=== PATIENT | male | born 2000 | race Two or more races ===

== ENCOUNTER 2022-12-22 09:50 | Emergency (ER) | payer OTHER ==
[~2022-12-22] VITALS: Ht 180.3 cm; Wt 95.3 kg
== END 2022-12-22 16:37 | disposition home or self-care (01) ==
LOC: ER 09:50
DX: K52.9 Noninfective gastroenteritis and colitis, unspecified (principal); Z20.822 Contact with and (suspected) exposure to COVID-19

== ENCOUNTER 2022-12-24 00:37 | Emergency (ER) | payer OTHER ==
[~2022-12-24] VITALS: Ht 177.8 cm; Wt 88.0 kg
== END 2022-12-24 14:14 | disposition home or self-care (01) ==
LOC: ER 00:37
DX: R11.10 Vomiting, unspecified (principal); E86.0 Dehydration

== ENCOUNTER 2022-12-26 14:39 | Emergency (ER) | payer OTHER ==
[~2022-12-26] VITALS: Ht 177.8 cm; Wt 86.2 kg
== END 2022-12-26 23:08 | disposition home or self-care (01) ==
LOC: ER
DX: K29.70 Gastritis, unspecified, without bleeding (principal)

== ENCOUNTER 2023-01-21 20:52 | Emergency (ER) | payer OTHER ==
[~2023-01-21] VITALS: Ht 177.8 cm; Wt 85.7 kg
[2023-01-21] MEDS ORDERED: CARAFATE1 GM/10 ML PO (22:59)
== END 2023-01-21 23:44 | disposition home or self-care (01) ==
LOC: ER 20:52
DX: K29.70 Gastritis, unspecified, without bleeding (principal)

== ENCOUNTER 2023-03-01 15:22 | Emergency (ER) | payer OTHER ==
[~2023-03-01] VITALS: Ht 177.8 cm; Wt 70.8 kg
[~2023-03-01 15:22] MED LIST: CARAFATE1 GM/10 ML PO
== END 2023-03-02 00:07 | disposition home or self-care (01) ==
LOC: ER 15:22
DX: K29.70 Gastritis, unspecified, without bleeding (principal)

== ENCOUNTER → 2023-03-29 | Emergency (ER) | payer OTHER ==
[~2023-03-29] VITALS: Ht 172.7 cm; Wt 68.0 kg
== END | disposition home or self-care (01) ==
LOC: ER 10:37
PROVIDERS: Emergency Medicine
DX: K29.70 Gastritis, unspecified, without bleeding (principal)

== ENCOUNTER 2023-04-12 11:37 | Emergency (ER) | payer OTHER ==
[~2023-04-12] VITALS: Ht 182.9 cm; Wt 59.0 kg
== END 2023-04-12 19:02 | disposition home or self-care (01) ==
LOC: ER 11:37
PROVIDERS: Emergency Medicine
DX: K29.70 Gastritis, unspecified, without bleeding (principal)

== ENCOUNTER 2023-06-26 22:35 | Emergency (ER) | payer OTHER ==
[~2023-06-26] VITALS: Ht 177.8 cm; Wt 68.0 kg
[2023-06-27 01:50] LABS: HEMATOCRIT 43.4 % (39.0-48.0); HEMOGLOBIN 14.6 g/dL (13-16.00); MEAN CELL VOLUME 86.4 fL (80.0-100.00); MEAN CORPUSCULAR HEMOGLOBIN 29.1 pg (27.00-32.0); MEAN CORPUSCULAR HGB CONC 33.7 g/dl (32.0-36.0); PLATELET COUNT 272 K/uL (150-450); RED BLOOD COUNT 5.02 M/uL (4.00-6.00); RED CELL DISTRIBUTION WIDTH 13.6 % (11.5-14.5)
[2023-06-27 02:08] LABS: CALCIUM 9.4 mg/dL (8.5-10.1); CREATININE SERUM 0.81 mg/dL (0.70-1.30); GFR 119.16; POTASSIUM 3.49 mEq/L (3.5-5.1)
[2023-06-27 06:55] LABS: PH,URINE 6.5 (5.0-8.0); URINE APPEARANCE Cloudy; URINE BILIRRUBIN Negative (NEGATIVE); URINE BLOOD Trace; URINE COLOR Yellow; URINE GLUCOSE Negative (NEGATIVE); URINE LEUKOCYTE Large; URINE NITRATE Negative; URINE PROTEIN Negative (NEGATIVE)
[2023-06-27 06:56] LABS: URINE BACTERIA 132.2 uL (0.0-1933); URINE RBC 13.6 uL (0.0-20.8)
[2023-06-27 08:05] LABS: URINE EPITHELIAL CELLS 0.1 uL (0.0-38.8)
[2023-06-27] MEDS ORDERED: ONDANSETRON ODT4 MG PO ×2 (08:48→08:49)
[2023-06-27] MEDS ORDERED: PEPCID40 MG PO ×2 (08:48→08:49)
[2023-06-27] MEDS ORDERED: CEPHALEXIN250 MG/5 M PO (08:49)
== END 2023-06-27 09:34 ==
LOC: ER 22:35
PROVIDERS: General Practice
DX: R11.10 Vomiting, unspecified (principal)

== ENCOUNTER 2023-07-03 22:35 | Emergency (ER) | payer OTHER ==
[~2023-07-03] VITALS: Ht 177.8 cm; Wt 72.6 kg
[~2023-07-03 22:35] MED LIST changes: +CEPHALEXIN250 MG/5 M PO; +ONDANSETRON ODT4 MG PO; +PEPCID40 MG PO
[2023-07-04 01:18] LABS: MEAN CELL VOLUME 84.1 fL (80.0-100.00); MEAN CORPUSCULAR HEMOGLOBIN 29.3 pg (27.00-32.0); MEAN CORPUSCULAR HGB CONC 34.8 g/dl (32.0-36.0); PLATELET COUNT 303 K/uL (150-450); RED BLOOD COUNT 5.47 M/uL (4.00-6.00); RED CELL DISTRIBUTION WIDTH 13.9 % (11.5-14.5)
[2023-07-04 01:41] LABS: ALBUMIN 4.7 gm/dL (3.4-5.0); BILIRUBIN TOTAL 0.94 mg/dL (0.3-1.2); CALCIUM 9.9 mg/dL (8.5-10.1); CREATININE SERUM 0.91 mg/dL (0.70-1.30); GFR 104.18; GLOBULINA 4.2 G/DL (2.4-3.5); POTASSIUM 3.53 mEq/L (3.5-5.1); TOTAL PROTEIN 8.9 gm/dL (6.4-8.2)
[2023-07-04 07:24] LABS: URINE APPEARANCE Clear; URINE BILIRRUBIN Negative (NEGATIVE); URINE BLOOD Trace; URINE COLOR Yellow; URINE GLUCOSE Negative (NEGATIVE); URINE LEUKOCYTE Negative; URINE NITRATE Negative; URINE PROTEIN 30 (NEGATIVE)
[2023-07-04 07:27] LABS: URINE BACTERIA 28.9 uL (0.0-1933); URINE EPITHELIAL CELLS 9.4 uL (0.0-38.8)
[2023-07-04] MEDS ORDERED: ZUPLENZ4 MG PO (07:45)
[2023-07-04] MEDS ORDERED: PEPCID40 MG PO (07:45)
== END 2023-07-04 07:53 ==
LOC: ER 22:35
PROVIDERS: General Practice
DX: K29.70 Gastritis, unspecified, without bleeding (principal); E86.0 Dehydration

== ENCOUNTER 2023-07-09 22:38 | Emergency (ER) | payer OTHER ==
[~2023-07-09] VITALS: Ht 177.8 cm; Wt 72.6 kg
[~2023-07-09 22:38] MED LIST changes: +ZUPLENZ4 MG PO
[2023-07-10 02:30] LABS: HEMATOCRIT 41.7 % (39.0-48.0); HEMOGLOBIN 14.7 g/dL (13-16.00); MEAN CELL VOLUME 85.4 fL (80.0-100.00); MEAN CORPUSCULAR HEMOGLOBIN 30.1 pg (27.00-32.0); MEAN CORPUSCULAR HGB CONC 35.2 g/dl (32.0-36.0); PLATELET COUNT 274 K/uL (150-450); RED BLOOD COUNT 4.88 M/uL (4.00-6.00); RED CELL DISTRIBUTION WIDTH 13.6 % (11.5-14.5)
[2023-07-10 03:56] LABS: ALBUMIN 4.2 gm/dL (3.4-5.0); BILIRUBIN TOTAL 0.62 mg/dL (0.3-1.2); CALCIUM 9.4 mg/dL (8.5-10.1); CREATININE SERUM 0.96 mg/dL (0.70-1.30); GFR 97.95; GLOBULINA 3.5 G/DL (2.4-3.5); POTASSIUM 3.21 mEq/L (3.5-5.1); TOTAL PROTEIN 7.7 gm/dL (6.4-8.2)
[2023-07-10] MEDS ORDERED: ZOFRAN8 MG PO (06:47)
[2023-07-10] MEDS ORDERED: PEPCID AC20 MG PO (06:47)
[2023-07-10] MEDS ORDERED: CARAFATE1 GM PO (06:47)
== END 2023-07-10 06:56 | disposition home or self-care (01) ==
LOC: ER 22:38
PROVIDERS: General Practice
DX: K29.70 Gastritis, unspecified, without bleeding (principal); R11.10 Vomiting, unspecified

== ENCOUNTER → 2023-08-17 | Emergency (ER) | payer OTHER ==
[~2023-08-17] VITALS: Ht 177.8 cm; Wt 86.2 kg
[~2023-08-17] MED LIST changes: +CARAFATE1 GM PO; +PEPCID AC20 MG PO; +ZOFRAN8 MG PO
[2023-08-17 14:01] LABS: HEMATOCRIT 43.7 % (39.0-48.0); HEMOGLOBIN 14.8 g/dL (13-16.00); MEAN CELL VOLUME 87.3 fL (80.0-100.00); MEAN CORPUSCULAR HEMOGLOBIN 29.6 pg (27.00-32.0); MEAN CORPUSCULAR HGB CONC 33.9 g/dl (32.0-36.0); PLATELET COUNT 278 K/uL (150-450); RED CELL DISTRIBUTION WIDTH 13.2 % (11.5-14.5)
[2023-08-17 14:33] LABS: ALBUMIN 4.2 gm/dL (3.4-5.0); BILIRUBIN TOTAL 0.55 mg/dL (0.3-1.2); BILIRUBIN,CONJUGATED 0.19 mg/dL (0.0-0.2); BILIRUBIN,UNCONJUGATED 0.36 mg/dL (0.0-0.6); CALCIUM 9.4 mg/dL (8.5-10.1); CREATININE SERUM 0.8 mg/dL (0.70-1.30); GFR 120.88; POTASSIUM 3.59 mEq/L (3.5-5.1); TOTAL PROTEIN 7.4 gm/dL (6.4-8.2)
[2023-08-17 14:47] LABS: PH,URINE 8.5 (5.0-8.0); URINE APPEARANCE Clear; URINE BILIRRUBIN Negative (NEGATIVE); URINE BLOOD Negative; URINE COLOR Yellow; URINE GLUCOSE Negative (NEGATIVE); URINE LEUKOCYTE Negative; URINE NITRATE Negative; URINE PROTEIN Negative (NEGATIVE)
[2023-08-17 14:53] LABS: URINE BACTERIA 18.8 uL (0.0-1933); URINE EPITHELIAL CELLS 1.6 uL (0.0-38.8); URINE WBC 9.4 uL (0.0-23.2)
[2023-08-17 15:04] LABS: COCAINE NEGATIVE (NEGATIVE); METHADONE NEGATIVE (NEGATIVE); OPIATES NEGATIVE (NEGATIVE); THC ( Cannabinoids) POSITIVE (NEGATIVE)
== END | disposition home or self-care (01) ==
LOC: ER 11:32
PROVIDERS: General Practice
DX: K29.70 Gastritis, unspecified, without bleeding (principal)

== ENCOUNTER 2023-09-23 18:15 | Emergency (ER) | payer OTHER ==
[~2023-09-23] VITALS: Ht 177.8 cm; Wt 77.1 kg
[2023-09-23] MEDS ORDERED: FAMOTIDINE/PF 20 MG in 0.9 % SODIUM CHLORIDE 8 ML IV PUSH STA (20:05)
[2023-09-23] MEDS ORDERED: KETOROLAC TROMETHAMINE 30 MG VIAL IV ONE (20:15)
[2023-09-23] MEDS ORDERED: 0.9 % SODIUM CHLORIDE 1,000 ML IV SCH (20:15)
[2023-09-23] MEDS ORDERED: ONDANSETRON HCL 2 MG/ML VIAL IV ONE (20:15)
[2023-09-23 21:11] LABS: HEMATOCRIT 45.6 % (39.0-48.0); HEMOGLOBIN 15.5 g/dL (13-16.00); MEAN CELL VOLUME 85.5 fL (80.0-100.00); MEAN CORPUSCULAR HEMOGLOBIN 29.1 pg (27.00-32.0); MEAN CORPUSCULAR HGB CONC 34.1 g/dl (32.0-36.0); PLATELET COUNT 296 K/uL (150-450); RED BLOOD COUNT 5.33 M/uL (4.00-6.00); RED CELL DISTRIBUTION WIDTH 13.9 % (11.5-14.5)
[2023-09-23 21:43] LABS: ALBUMIN 4.7 gm/dL (3.4-5.0); BILIRUBIN TOTAL 1.22 mg/dL (0.3-1.2); CREATININE SERUM 0.8 mg/dL (0.70-1.30); GFR 120.88; GLOBULINA 3.5 G/DL (2.4-3.5); POTASSIUM 4.25 mEq/L (3.5-5.1); TOTAL PROTEIN 8.2 gm/dL (6.4-8.2)
== END 2023-09-23 22:21 | disposition home or self-care (01) ==
LOC: ER 18:15
PROVIDERS: General Practice
DX: K29.70 Gastritis, unspecified, without bleeding (principal); R11.2 Nausea with vomiting, unspecified

== ENCOUNTER 2023-11-03 20:28 | Emergency (ER) | payer OTHER ==
[~2023-11-03] VITALS: Ht 177.8 cm; Wt 81.6 kg
[2023-11-03] MEDS ORDERED: ONDANSETRON HCL 2 MG/ML VIAL IV ONE (21:15)
[2023-11-03] MEDS ORDERED: 0.9 % SODIUM CHLORIDE 1,000 ML IV SCH (21:15)
[2023-11-03] MEDS ORDERED: KETOROLAC TROMETHAMINE 30 MG VIAL IV ONE (21:15)
[2023-11-03] MEDS ORDERED: FAMOtidine 10 MG/ML (4ML VIAL) IV PUSH ONE (21:15)
[2023-11-03] MEDS ORDERED: METHYLPREDNISOLONE SOD SUCC 125 MG VIAL IV ONE (21:15)
[2023-11-03 21:59] LABS: HEMATOCRIT 43.8 % (39.0-48.0); HEMOGLOBIN 15.4 g/dL (13-16.00); MEAN CELL VOLUME 84.5 fL (80.0-100.00); MEAN CORPUSCULAR HEMOGLOBIN 29.6 pg (27.00-32.0); MEAN CORPUSCULAR HGB CONC 35.1 g/dl (32.0-36.0); PLATELET COUNT 353 K/uL (150-450); RED BLOOD COUNT 5.18 M/uL (4.00-6.00); RED CELL DISTRIBUTION WIDTH 13.6 % (11.5-14.5)
[2023-11-03 22:28] LABS: ALBUMIN 4.4 gm/dL (3.4-5.0); BILIRUBIN TOTAL 0.96 mg/dL (0.3-1.2); CALCIUM 9.7 mg/dL (8.5-10.1); CREATININE SERUM 0.83 mg/dL (0.70-1.30); GFR 114.81; GLOBULINA 3.9 G/DL (2.4-3.5); POTASSIUM 3.86 mEq/L (3.5-5.1); TOTAL PROTEIN 8.3 gm/dL (6.4-8.2)
[2023-11-03] MEDS ORDERED: ONDANSETRON ODT8 MG PO (22:57)
== END 2023-11-03 23:08 | disposition home or self-care (01) ==
LOC: ER 20:29
PROVIDERS: General Practice
DX: K29.70 Gastritis, unspecified, without bleeding (principal); R11.2 Nausea with vomiting, unspecified
CPT/HCPCS: 36415; 96365; 96366; J1885; J2405; J3490; J7030